=== PATIENT | female | born 1975 | race Caucasian/White ===

== ENCOUNTER → 2021-12-30 | Outpatient (CLI) | payer MEDICAID ==
[~2021-12-30] VITALS: Ht 154.6 cm; Wt 110.0 kg
[~2021-12-30] MED LIST: AMOX500C2 PO; LIDOCAINE 1% INJ 20 ML VIAL INJ ONE
--- NOTE | 2021-12-31 09:18 | Diagnostic Imaging Report ---
INDICATION: Left breast density. Patient presents for stereotactic biopsy. DETAILS OF THE PROCEDURE: The patient was brought to the stereotactic suite and placed in a chair in a sitting upright position. The left breast was positioned lateral medial. The questioned architectural distortion and calcifications were stereotactically targeted. The lateral left breast was then prepped and draped in the usual sterile fashion. A small amount of 1% lidocaine was utilized for local anesthesia. An 8 gauge vacuum-assisted biopsy needle was advanced and placed per stereotactic coordinates. A total of 4 core biopsies was obtained. Specimen radiograph does show multiple calcifications within the sample labeled #4. A marker clip was then deployed. The needle was removed and hemostasis was obtained using manual compression. Followup 2D CC and LM mammography was performed demonstrating a new marker clip in the upper outer left breast at mid depth. The previously noted calcifications have been removed. All images were viewed on a dedicated workstation. IMPRESSION: Successful stereotactic biopsy of an abnormal density and calcifications in the upper outer left breast at mid depth utilizing an 8 gauge vacuum-assisted device. Pathology results are currently pending. Dictated by: Dictated on workstation # [id number]
== END ==
LOC: RAD 12:52
PROVIDERS: ATTEND Nurse Practitioner Women's Health
DX: N63.0 Unspecified lump in unspecified breast (principal); N64.89 Other specified disorders of breast
CPT/HCPCS: 19081